=== PATIENT | female | born 1985 | race Two or more races ===

== ENCOUNTER 2024-05-06 18:59 | Inpatient (IN) | payer OTHER ==
[~2024-05-06] VITALS: Ht 157.5 cm; Wt 54.9 kg
[2024-05-06 21:05] VITALS: BP 160/81; TEMP 98.2; O2SAT 98
[2024-05-06] MEDS ORDERED: RISP0.5T65 PO (21:22)
[2024-05-06] MEDS ORDERED: LEVO50TA8 PO (21:22)
[2024-05-06] MEDS ORDERED: QUET100T PO ×2 (21:22)
[2024-05-06] MEDS ORDERED: MAGNESIUM HYDROXIDE 30 ML UDC PO PRN (23:30)
[2024-05-06] MEDS ORDERED: ONDANSETRON HCL/PF 4 MG/2 ML VIAL IVP PRN (23:30)
[2024-05-06] MEDS ORDERED: PIPERACILLIN /TAZOBACTAM 3.375 G in IV D5W 50 ML IV SCH (23:45)
[2024-05-06] MEDS: IV LR 1000 ML 1,000 ML IV SCH (23:48)
[2024-05-06] MEDS: PIPERACI/TAZO 3.375GM/D5W 50ML PB IV ONE (23:59)
[2024-05-06] MEDS: PIPERACILLIN /TAZOBACTAM 3.375 G in IV D5W 50 ML IV ONE (23:59)
[2024-05-07] VITALS: BP 102/66; TEMP 98.2; O2SAT 99
[2024-05-07 04:00] VITALS: BP 92/61; TEMP 97.9; O2SAT 98
[2024-05-07 06:07] LABS: BASOPHILS % (AUTO) 0.4 % (0.0-2.0); EOSINOPHILS # (AUTO) 0.2 K/uL (0.0-0.7); EOSINOPHILS % (AUTO) 2.7 % (0.0-6.0); HEMATOCRIT 35 % (33-45); HEMOGLOBIN 11.8 g/dL (11.5-14.8); LYMPHOCYTES % (AUTO) 22.8 % (20.0-44.0); MEAN CORPUSCULAR HEMOGLOBIN 32 PG (26.0-33.0); MEAN CORPUSCULAR HGB CONC 34 g/dl (31.0-36.0); MEAN CORPUSCULAR VOLUME 95 fL (82-100); MONOCYTES # (AUTO) 0.6 K/uL (0.1-1.30); MONOCYTES % (AUTO) 6.6 % (2.0-12.0); NEUTROPHILS # (AUTO) 5.8 K/uL (1.8-8.9); NEUTROPHILS % (AUTO) 67.5 % (43.0-81.0); PLATELET COUNT (AUTO) 463 K/uL (150-450); RED BLOOD CELL COUNT(AUTO) 3.69 MIL/uL (4.0-5.2); RED CELL DISTRIBUTION WIDTH 13.3 % (11.5-15.0); WHITE BLOOD COUNT (AUTO) 8.6 K/uL (4.3-11.0)
[2024-05-07 06:30] LABS: ALBUMIN 2.3 g/dL (3.4-5.0); BILIRUBIN,TOTAL 0.7 mg/dL (0.2-1.0); CALCIUM, SERUM 8.8 mg/dL (8.5-10.1); CREATININE 0.5 mg/dL (0.6-1.3); PHOSPHORUS 4.6 mg/dL (2.5-4.9); TOTAL PROTEIN, SERUM 7.6 g/dL (6.4-8.2)
[2024-05-07 07:01] LABS: THYROID STIMULATING HORMONE 2.17 uIU/mL (0.358-3.74)
[2024-05-07] MEDS: LEVOTHYROXINE SODIUM 50 MCG TABLET PO SCH (07:30)
[2024-05-07] MEDS ORDERED: PIPERACILLIN /TAZOBACTAM 3.375 G in IV D5W 50 ML IV SCH (08:00)
[2024-05-07 08:36] LABS: BASOPHILS % (MANUAL) 0 % (0.0-2.0); EOSINOPHILS % (MANUAL) 5 % (0-4); LYMPHOCYTES % (MANUAL) 19 % (16-48); MONOCYTES % (MANUAL) 8 % (0-11.0); NEUTROPHILS % (MANUAL) 68 (42-76); PLATELET ESTIMATE ADEQUATE
[2024-05-07] MEDS: PIPERACILLIN /TAZOBACTAM 3.375 G in IV D5W 100 ML IV SCH (08:51)
[2024-05-07] MEDS: risperiDONE 1 MG TABLET PO SCH (09:00)
[2024-05-07] MEDS: QUETIAPINE FUMARATE 100 MG TABLET PO SCH ×2 (09:00→18:00)
[2024-05-07] MEDS: PANTOPRAZOLE 40 MG VIAL IV SCH (09:01)
[2024-05-07] MEDS: NICOTINE PATCH (21MG) 21 MG PATCH.TD24 TD SCH (09:01)
[2024-05-07 12:00] VITALS: BP 113/83; TEMP 98.2; O2SAT 99
[2024-05-07 20:00] VITALS: BP 120/60; TEMP 98
[2024-05-08 02:30] LABS: PREGNANCY TEST URINE QUAL NEGATIVE (NEGATIVE)
[2024-05-08 04:00] VITALS: BP 101/69; TEMP 97.9; O2SAT 97
[2024-05-08] MEDS: IV LR 1000 ML 1,000 ML IV PRN (04:12)
[2024-05-08] MEDS: PANTOPRAZOLE 40 MG TABLET.DR PO SCH (08:30)
[2024-05-08] MEDS: QUETIAPINE FUMARATE 100 MG TABLET PO SCH (08:30)
[2024-05-08 09:25] LABS: BASOPHILS # (AUTO) 0.1 K/uL (0.0-0.2); BASOPHILS % (AUTO) 1.1 % (0.0-2.0); EOSINOPHILS # (AUTO) 0.2 K/uL (0.0-0.7); EOSINOPHILS % (AUTO) 3.9 % (0.0-6.0); HEMATOCRIT 36 % (33-45); HEMOGLOBIN 11.9 g/dL (11.5-14.8); LYMPHOCYTES # (AUTO) 1.8 K/uL (0.8-4.8); LYMPHOCYTES % (AUTO) 33.4 % (20.0-44.0); MEAN CORPUSCULAR HEMOGLOBIN 32 PG (26.0-33.0); MEAN CORPUSCULAR HGB CONC 33 g/dl (31.0-36.0); MEAN CORPUSCULAR VOLUME 96 fL (82-100); MONOCYTES # (AUTO) 0.4 K/uL (0.1-1.30); NEUTROPHILS % (AUTO) 54.6 % (43.0-81.0); PLATELET COUNT (AUTO) 504 K/uL (150-450); RED CELL DISTRIBUTION WIDTH 13.2 % (11.5-15.0); WHITE BLOOD COUNT (AUTO) 5.4 K/uL (4.3-11.0)
[2024-05-08 09:37] LABS: ALBUMIN 2.6 g/dL (3.4-5.0); BILIRUBIN,TOTAL 0.4 mg/dL (0.2-1.0); CALCIUM, SERUM 8.9 mg/dL (8.5-10.1); CREATININE 0.6 mg/dL (0.6-1.3); MAGNESIUM 2.1 mg/dL (1.8-2.4); PHOSPHORUS 3.5 mg/dL (2.5-4.9); POTASSIUM 3.9 mmol/L (3.5-5.1); TOTAL PROTEIN, SERUM 8.1 g/dL (6.4-8.2)
[2024-05-08 09:44] LABS: INR 1.02 (0.91-1.10); PROTHROMBIN TIME 10.8 SECS (9.2-11.1)
[2024-05-08 12:00] VITALS: BP 112/76; TEMP 97.7; O2SAT 97
[2024-05-08 12:22] LABS: EOSINOPHILS % (MANUAL) 2 % (0-4); LYMPHOCYTES % (MANUAL) 43 % (16-48); MONOCYTES % (MANUAL) 8 % (0-11.0); MYELOCYTES % 2 % (0-0); NEUTROPHILS % (MANUAL) 45 (42-76); PLATELET ESTIMATE INCREASED
[2024-05-08 12:23] LABS: STOMATOCYTES 1+
[2024-05-08 20:00] VITALS: BP 92/62; TEMP 98.1; O2SAT 99
[2024-05-09 04:00] VITALS: BP 111/78; TEMP 97.9; O2SAT 99
[2024-05-09] MEDS ORDERED: BACITRACIN ZINC OINT (15 GM) 15 GM TUBE TP ONE (06:51)
[2024-05-09] MEDS ORDERED: LIDOCAINE 1%-EPI 1:100,000 20 ML VIAL ONE (06:51)
[2024-05-09] MEDS ORDERED: BUPIVACAINE 0.5 % PF 150 MG/30 ML VIAL ONE (06:51)
[2024-05-09] MEDS ORDERED: ROCURONIUM BROMIDE 50 MG/5 ML ONE (07:14)
[2024-05-09] MEDS ORDERED: MORPHINE SULFATE INJ 4 MG/ML DISP.SYRIN ONE (07:14)
[2024-05-09] MEDS ORDERED: FENTANYL PF 250MCG/5ML AMPUL ONE (07:14)
[2024-05-09] MEDS ORDERED: FENTANYL PF 100MCG/2ML AMPUL ONE (07:15)
[2024-05-09] MEDS ORDERED: KETOROLAC TROMETHAMINE INJ 30 MG/ML VIAL ONE ×2 (10:56→10:57)
[2024-05-09 11:45] VITALS: BP 113/73; TEMP 98; O2SAT 98
[2024-05-09 12:00] VITALS: BP 112/72; TEMP 98; O2SAT 98
[2024-05-09 12:15] VITALS: BP 108/70; TEMP 97.9; O2SAT 99
[2024-05-09 12:30] VITALS: BP 114/71; TEMP 98.1; O2SAT 98
[2024-05-09] MEDS: ACETAMINOPHEN 325 MG TABLET PO SCH (12:35)
[2024-05-09] MEDS: GABAPENTIN 100 MG CAPSULE PO SCH (12:35)
[2024-05-09] MEDS: CELECOXIB 100 MG CAPSULE PO SCH (12:35)
[2024-05-09 13:23] LABS: BASOPHILS % (AUTO) 0.1 % (0.0-2.0); EOSINOPHILS % (AUTO) 0.2 % (0.0-6.0); HEMATOCRIT 37 % (33-45); HEMOGLOBIN 12.6 g/dL (11.5-14.8); LYMPHOCYTES # (AUTO) 0.8 K/uL (0.8-4.8); LYMPHOCYTES % (AUTO) 5.6 % (20.0-44.0); MEAN CORPUSCULAR HEMOGLOBIN 32 PG (26.0-33.0); MEAN CORPUSCULAR HGB CONC 34 g/dl (31.0-36.0); MEAN CORPUSCULAR VOLUME 95 fL (82-100); MONOCYTES # (AUTO) 0.2 K/uL (0.1-1.30); MONOCYTES % (AUTO) 1.4 % (2.0-12.0); NEUTROPHILS # (AUTO) 12.9 K/uL (1.8-8.9); NEUTROPHILS % (AUTO) 92.7 % (43.0-81.0); PLATELET COUNT (AUTO) 448 K/uL (150-450); RED BLOOD CELL COUNT(AUTO) 3.91 MIL/uL (4.0-5.2); RED CELL DISTRIBUTION WIDTH 13.3 % (11.5-15.0); WHITE BLOOD COUNT (AUTO) 13.9 K/uL (4.3-11.0)
[2024-05-09 13:32] LABS: ALBUMIN 2.7 g/dL (3.4-5.0); BILIRUBIN,TOTAL 0.4 mg/dL (0.2-1.0); CALCIUM, SERUM 8.7 mg/dL (8.5-10.1); CREATININE 0.6 mg/dL (0.6-1.3); MAGNESIUM 1.9 mg/dL (1.8-2.4); POTASSIUM 3.8 mmol/L (3.5-5.1); TOTAL PROTEIN, SERUM 7.9 g/dL (6.4-8.2)
[2024-05-09] MEDS: MORPHINE SULFATE INJ 4 MG/ML DISP.SYRIN IV PRN (15:54)
[2024-05-09 20:00] VITALS: BP_SYST 105; BP_SYST 122; BP_DIAS 62; BP_DIAS 73; TEMP 97.8; TEMP 97.9; O2SAT 96; O2SAT 98
[2024-05-09] MEDS: HYDROCODONE/APAP 5/325MG TABLET PO PRN (20:03)
[2024-05-10 04:00] VITALS: BP 99/60; TEMP 97.8; O2SAT 98
[2024-05-10 12:56] VITALS: BP 112/72; TEMP 98; O2SAT 98
[2024-05-10 13:18] LABS: BASOPHILS % (AUTO) 0.4 % (0.0-2.0); EOSINOPHILS # (AUTO) 0.2 K/uL (0.0-0.7); EOSINOPHILS % (AUTO) 2.5 % (0.0-6.0); HEMATOCRIT 33 % (33-45); HEMOGLOBIN 11.6 g/dL (11.5-14.8); LYMPHOCYTES % (AUTO) 24.1 % (20.0-44.0); MEAN CORPUSCULAR HEMOGLOBIN 33 PG (26.0-33.0); MEAN CORPUSCULAR HGB CONC 35 g/dl (31.0-36.0); MEAN CORPUSCULAR VOLUME 95 fL (82-100); MONOCYTES # (AUTO) 0.5 K/uL (0.1-1.30); MONOCYTES % (AUTO) 6.5 % (2.0-12.0); NEUTROPHILS # (AUTO) 5.6 K/uL (1.8-8.9); NEUTROPHILS % (AUTO) 66.5 % (43.0-81.0); PLATELET COUNT (AUTO) 435 K/uL (150-450); RED BLOOD CELL COUNT(AUTO) 3.45 MIL/uL (4.0-5.2); WHITE BLOOD COUNT (AUTO) 8.4 K/uL (4.3-11.0)
[2024-05-10 13:20] LABS: CALCIUM, SERUM 8.9 mg/dL (8.5-10.1); CREATININE 0.7 mg/dL (0.6-1.3); POTASSIUM 3.6 mmol/L (3.5-5.1)
[2024-05-10 13:24] LABS: MAGNESIUM 2.2 mg/dL (1.8-2.4); PHOSPHORUS 3.7 mg/dL (2.5-4.9)
[2024-05-10 20:00] VITALS: BP 95/63; TEMP 97.7; O2SAT 100
[2024-05-11 04:00] VITALS: BP 112/63; TEMP 97.8; O2SAT 97
[2024-05-11 07:53] LABS: BASOPHILS % (AUTO) 0.3 % (0.0-2.0); EOSINOPHILS # (AUTO) 0.3 K/uL (0.0-0.7); EOSINOPHILS % (AUTO) 3.4 % (0.0-6.0); HEMATOCRIT 32 % (33-45); HEMOGLOBIN 10.9 g/dL (11.5-14.8); LYMPHOCYTES # (AUTO) 1.9 K/uL (0.8-4.8); LYMPHOCYTES % (AUTO) 24.3 % (20.0-44.0); MEAN CORPUSCULAR HEMOGLOBIN 32 PG (26.0-33.0); MEAN CORPUSCULAR HGB CONC 34 g/dl (31.0-36.0); MEAN CORPUSCULAR VOLUME 96 fL (82-100); MONOCYTES # (AUTO) 0.5 K/uL (0.1-1.30); MONOCYTES % (AUTO) 6.6 % (2.0-12.0); NEUTROPHILS # (AUTO) 5.2 K/uL (1.8-8.9); NEUTROPHILS % (AUTO) 65.4 % (43.0-81.0); PLATELET COUNT (AUTO) 427 K/uL (150-450); RED BLOOD CELL COUNT(AUTO) 3.38 MIL/uL (4.0-5.2); RED CELL DISTRIBUTION WIDTH 13.2 % (11.5-15.0); WHITE BLOOD COUNT (AUTO) 7.9 K/uL (4.3-11.0)
[2024-05-11 08:23] LABS: ALBUMIN 2.5 g/dL (3.4-5.0); BILIRUBIN,DIRECT 0.2 mg/dL (0.0-0.2); BILIRUBIN,TOTAL 0.3 mg/dL (0.2-1.0); CALCIUM, SERUM 8.9 mg/dL (8.5-10.1); CREATININE 0.8 mg/dL (0.6-1.3); TOTAL PROTEIN, SERUM 7.2 g/dL (6.4-8.2)
[2024-05-11 12:00] VITALS: BP 110/70; TEMP 97.9; O2SAT 99
[2024-05-11 20:00] VITALS: BP 110/75; TEMP 97.5; O2SAT 99
[2024-05-12 04:00] VITALS: BP 120/90; TEMP 97.5; O2SAT 99
[2024-05-12 06:32] LABS: BASOPHILS % (AUTO) 0.2 % (0.0-2.0); EOSINOPHILS # (AUTO) 0.3 K/uL (0.0-0.7); EOSINOPHILS % (AUTO) 6.1 % (0.0-6.0); HEMATOCRIT 33 % (33-45); HEMOGLOBIN 10.9 g/dL (11.5-14.8); LYMPHOCYTES # (AUTO) 1.6 K/uL (0.8-4.8); LYMPHOCYTES % (AUTO) 30.6 % (20.0-44.0); MEAN CORPUSCULAR HEMOGLOBIN 32 PG (26.0-33.0); MEAN CORPUSCULAR HGB CONC 33 g/dl (31.0-36.0); MEAN CORPUSCULAR VOLUME 97 fL (82-100); MONOCYTES # (AUTO) 0.5 K/uL (0.1-1.30); NEUTROPHILS # (AUTO) 2.8 K/uL (1.8-8.9); NEUTROPHILS % (AUTO) 54.1 % (43.0-81.0); PLATELET COUNT (AUTO) 369 K/uL (150-450); RED BLOOD CELL COUNT(AUTO) 3.39 MIL/uL (4.0-5.2); RED CELL DISTRIBUTION WIDTH 13.3 % (11.5-15.0); WHITE BLOOD COUNT (AUTO) 5.2 K/uL (4.3-11.0)
[2024-05-12 06:41] LABS: ALBUMIN 2.3 g/dL (3.4-5.0); BILIRUBIN,DIRECT 0.9 mg/dL (0.0-0.2); CALCIUM, SERUM 8.8 mg/dL (8.5-10.1); CREATININE 0.6 mg/dL (0.6-1.3); POTASSIUM 3.7 mmol/L (3.5-5.1); TOTAL PROTEIN, SERUM 6.9 g/dL (6.4-8.2)
[2024-05-12 08:00] VITALS: BP 98/72; TEMP 97.8; O2SAT 99
[2024-05-12 16:00] VITALS: BP 95/61; TEMP 97.9; O2SAT 98
[2024-05-13 00:19] VITALS: BP 119/73; TEMP 97.9; O2SAT 100
[2024-05-13 08:00] VITALS: BP 95/64; TEMP 98.6; O2SAT 100
[2024-05-13 08:25] LABS: BASOPHILS % (AUTO) 0.6 % (0.0-2.0); EOSINOPHILS # (AUTO) 0.4 K/uL (0.0-0.7); EOSINOPHILS % (AUTO) 5.7 % (0.0-6.0); HEMATOCRIT 34 % (33-45); HEMOGLOBIN 11.1 g/dL (11.5-14.8); LYMPHOCYTES # (AUTO) 2.1 K/uL (0.8-4.8); LYMPHOCYTES % (AUTO) 33.1 % (20.0-44.0); MEAN CORPUSCULAR HEMOGLOBIN 32 PG (26.0-33.0); MEAN CORPUSCULAR HGB CONC 33 g/dl (31.0-36.0); MEAN CORPUSCULAR VOLUME 97 fL (82-100); MONOCYTES # (AUTO) 0.4 K/uL (0.1-1.30); MONOCYTES % (AUTO) 6.2 % (2.0-12.0); NEUTROPHILS # (AUTO) 3.4 K/uL (1.8-8.9); NEUTROPHILS % (AUTO) 54.4 % (43.0-81.0); PLATELET COUNT (AUTO) 442 K/uL (150-450); RED BLOOD CELL COUNT(AUTO) 3.51 MIL/uL (4.0-5.2); RED CELL DISTRIBUTION WIDTH 13.2 % (11.5-15.0); WHITE BLOOD COUNT (AUTO) 6.3 K/uL (4.3-11.0)
[2024-05-13 09:05] LABS: CALCIUM, SERUM 8.9 mg/dL (8.5-10.1); CREATININE 0.7 mg/dL (0.6-1.3); POTASSIUM 4.1 mmol/L (3.5-5.1)
[2024-05-13 09:09] LABS: ALBUMIN 2.3 g/dL (3.4-5.0); BILIRUBIN,DIRECT 0.2 mg/dL (0.0-0.2); BILIRUBIN,TOTAL 0.3 mg/dL (0.2-1.0); TOTAL PROTEIN, SERUM 6.8 g/dL (6.4-8.2)
[2024-05-13] MEDS ORDERED: CELE100C PO (13:11)
[2024-05-13] MEDS ORDERED: ACET325T53 PO (13:11)
[2024-05-13] MEDS ORDERED: GABA100C PO (13:11)
[2024-05-13 16:00] VITALS: BP 98/74; TEMP 98.4; O2SAT 100
== END 2024-05-13 16:40 | disposition home or self-care (01) | DRG 415 ==
LOC: MEDSG1 20:39
PROVIDERS: ATTEND Internal Medicine
PROC: 0FT40ZZ Resection of Gallbladder, Open Approach (ICD-10-PCS; principal; 2024-05-09)
PROC: 0DNU0ZZ Release Omentum, Open Approach (ICD-10-PCS; 2024-05-09)
PROC: 0FJ44ZZ Inspection of Gallbladder, Percutaneous Endoscopic Approach (ICD-10-PCS; 2024-05-09)
DX: K80.12 Calculus of gallbladder with acute and chronic cholecystitis without obstruction (principal); E44.0 Moderate protein-calorie malnutrition; E87.1 Hypo-osmolality and hyponatremia; E87.6 Hypokalemia; K66.0 Peritoneal adhesions (postprocedural) (postinfection); E03.9 Hypothyroidism, unspecified; E88.09 Other disorders of plasma-protein metabolism, not elsewhere classified; R74.01 Elevation of levels of liver transaminase levels; E80.6 Other disorders of bilirubin metabolism; F17.210 Nicotine dependence, cigarettes, uncomplicated; F10.21 Alcohol dependence, in remission; Z68.22 Body mass index [BMI] 22.0-22.9, adult; Z87.442 Personal history of urinary calculi
CPT/HCPCS: 36415; 74181-TC; 80048-TC; 80053-TC; 80076-TC; 83735-TC; 84100-TC; 84443-TC; 84703-TC; 85025-TC; 85610-TC; 85730-TC; 86850-TC; 87081-TC; 88304-TC; A4223; G0378; J0330; J1885; J2270; J2405; J2470; J2543; J2704; J3010; J3490; J7030; J7050; J7060; J7120